=== PATIENT | female | born 1955 | race Caucasian/White ===

== ENCOUNTER → 2017-01-18 | Outpatient (CLI) | payer MEDICARE ==
[~2017-01-18] MED LIST: ACET-76 PO; ALBU18HF INH; ALBU2.5V NEB; ASPI-496 PO; ATOR10TA9 PO; CHOL10003 PO; CLOB15CR19 TD; ESOM20CA PO; FLUT1DIS3 INH; GLIP10TA13 PO; GUAI12003 PO; LEVO100T5 PO; LOPE2CAP94 PO; METF500T4 PO; MULT-516 PO; SERT50TA5 PO; SODI30SP NS; TIOT18CA INH; TRAM1TAB6 PO; TRAM50TA2 PO; TRIA10.8 NS; VITA150T PO; betamethasone cream TD; lidocaine ointment TD
[2017-01-18 15:18] LABS: BLOOD UREA NITROGEN 19 mg/dL (7-18)
[2017-01-18 15:22] LABS: ASPARTATE AMINO TRANSFERASE 14 U/L (15-37)
== END | disposition home or self-care (01) ==
LOC: STAR 13:29
PROVIDERS: ATTEND Specialist
DX: Z01.818 Encounter for other preprocedural examination (principal); R94.31 Abnormal electrocardiogram [ECG] [EKG]; R79.1 Abnormal coagulation profile
CPT/HCPCS: 36415; 80053; 85025; 85610; 85730; 93005

== ENCOUNTER 2017-01-29 05:38 | Inpatient (IN) | payer MEDICARE ==
[~2017-01-29] VITALS: Ht 157.5 cm; Wt 81.6 kg
[2017-01-29] MEDS ORDERED: LIDOCAINE 1%, 2ML SQ PRN (06:30)
[2017-01-29] MEDS ORDERED: LACTATED RINGERS 1,000 ML IV SCH (06:30)
[2017-01-29 06:32] VITALS: BP 146/72
[2017-01-29] MEDS ORDERED: BUPIVACAINE/PF 0.25% ONE (06:39)
[2017-01-29] MEDS ORDERED: EPINEPHRINE 1 MG/ML, 1ML ONE (06:39)
[2017-01-29] MEDS ORDERED: FENTANYL PF 250 MCG/5ML ONE (07:23)
[2017-01-29] MEDS ORDERED: MIDAZOLAM 1 MG/ML, 2ML ONE ×2 (07:24→08:08)
[2017-01-29] MEDS ORDERED: CEFOTETAN 2 GM ONE (07:38)
[2017-01-29] MEDS ORDERED: PROPOFOL 10 MG/ML, 20ML ONE (07:38)
[2017-01-29] MEDS ORDERED: ACETAMINOPHEN 325 MG TABLET PO PRN (09:30)
[2017-01-29] MEDS ORDERED: ALBUTEROL/IPRATROPIUM 2.5MG/0.5MG, 3 ML NPPB PRN (09:30)
[2017-01-29] MEDS ORDERED: hydrALAzine 20 MG/ML, 1ML IV PRN (09:30)
[2017-01-29] MEDS ORDERED: HYDROcodone/APAP 7.5-325MG/15ML UDC PO PRN ×2 (09:30→11:30)
[2017-01-29] MEDS ORDERED: MIDAZOLAM 1 MG/ML, 2ML IV PRN (09:30)
[2017-01-29] MEDS ORDERED: MEPERIDINE/PF 25MG/0.5ML IVPush PRN (09:30)
[2017-01-29] MEDS ORDERED: FENTANYL PF 100 MCG/2ML IV PRN (09:30)
[2017-01-29] MEDS ORDERED: OXYcodone 5 MG/5 ML ORAL.SOL UDC PO PRN (09:30)
[2017-01-29] MEDS ORDERED: LABETALOL 5MG/ML, 20ML IV PRN (09:30)
[2017-01-29] MEDS ORDERED: ONDANSETRON 2MG/ML, 2ML IVPush PRN ×2 (09:30→10:30)
[2017-01-29] MEDS ORDERED: EPHEDRINE 50 MG/ML, 1ML IVPush PRN (09:30)
[2017-01-29] MEDS ORDERED: PROMETHAZINE 25 MG/ML, 1ML IV PRN (09:30)
[2017-01-29] MEDS: LACTATED RINGERS 1,000 ML IV SCH ×2 (10:23→20:02)
[2017-01-29] MEDS ORDERED: OXYcodone/APAP 5/325MG TABLET PO PRN (10:30)
[2017-01-29] MEDS ORDERED: FENTANYL PF 100 MCG/2ML ONE (11:05)
[2017-01-29] MEDS ORDERED: KETOROLAC 30 MG/1 ML ONE (11:05)
[2017-01-29] MEDS: KETOROLAC 30 MG/1 ML IVPush PRN (11:09)
[2017-01-29] MEDS ORDERED: HYDROcodone/APAP 7.5-325MG/15ML UDC ONE (11:18)
[2017-01-29 12:15] VITALS: BP 125/40
[2017-01-29] MEDS ORDERED: CLOBETASOL PROPIONATE CRM 0.05%, 15GM TP PRN (13:00)
[2017-01-29] MEDS ORDERED: ALBUTEROL SULFATE 2.5 MG/3 ML NPPB PRN (13:00)
[2017-01-29] MEDS: IPRATROPIUM 0.5 MG/2.5 ML INHA HHN SCH ×2 (13:30→19:35)
[2017-01-29] MEDS ORDERED: LOPERAMIDE 2 MG CAPSULE PO PRN (13:30)
[2017-01-29] MEDS ORDERED: FLUTICASONE NASAL SPRAY 16GM NAS PRN (13:30)
[2017-01-29] MEDS ORDERED: SODIUM CHLORIDE NASAL SPRAY 45ML BOTTLE NAS PRN (13:30)
[2017-01-29] MEDS: metFORMIN 500 MG TABLET PO SCH (17:33)
[2017-01-29] MEDS: ATORVASTATIN 10 MG TABLET PO SCH (20:01)
[2017-01-29] MEDS: BETAMETHASONE DIPRO CRM 0.05%, 15GM TP SCH (20:02)
[2017-01-29] MEDS: GUAIFENESIN ER 600 MG TABLET PO SCH (20:02)
[2017-01-29 20:31] VITALS: BP 123/60
[2017-01-30] MEDS: KETOROLAC 30 MG/1 ML IVPush PRN ×2 (00:29→14:27)
[2017-01-30] MEDS: LIDOCAINE 4% TOPICAL SOLUTION 50 ML TP PRN ×2 (00:41→14:27)
[2017-01-30 00:54] VITALS: BP 133/60
[2017-01-30] MEDS: IPRATROPIUM 0.5 MG/2.5 ML INHA HHN SCH ×4 (01:15→18:59)
[2017-01-30 04:59] VITALS: BP 121/60
[2017-01-30] MEDS: LEVOTHYROXINE 100 MCG TABLET PO SCH (06:11)
[2017-01-30] MEDS: ENOXAPARIN 40 MG/0.4 ML SQ SCH (06:12)
[2017-01-30 08:07] VITALS: BP 142/55
[2017-01-30] MEDS: ASPIRIN 81 MG TABLET EC PO SCH (08:55)
[2017-01-30] MEDS: MULTIVITAMIN 1 TABLET PO SCH (08:55)
[2017-01-30] MEDS: PANTOPROZOLE 40MG TABLET PO SCH (08:55)
[2017-01-30] MEDS: metFORMIN 500 MG TABLET PO SCH ×2 (08:56→16:38)
[2017-01-30] MEDS: GLIPizide ER 5 MG TABLET PO SCH (08:56)
[2017-01-30] MEDS: MULTIVITS,STRESS FORMULA 1 TABLET PO SCH (08:57)
[2017-01-30] MEDS: GUAIFENESIN ER 600 MG TABLET PO SCH ×2 (08:57→22:05)
[2017-01-30] MEDS: SERTRALINE 50MG TABLET PO SCH (08:57)
[2017-01-30] MEDS: CHOLECALCIFEROL 1,000 UNIT TABLET PO SCH (08:57)
[2017-01-30] MEDS: LOPERAMIDE 2 MG CAPSULE PO SCH (08:58)
[2017-01-30] MEDS: FLUTICASONE/VILANTEROL 100-25MCG/INH INH SCH (08:58)
[2017-01-30] MEDS: BETAMETHASONE DIPRO CRM 0.05%, 15GM TP SCH ×2 (09:00→21:00)
[2017-01-30] MEDS: LACTATED RINGERS 1,000 ML IV SCH (11:19)
[2017-01-30 12:53] VITALS: BP 143/74
[2017-01-30 20:00] VITALS: BP 150/70
[2017-01-30] MEDS: ATORVASTATIN 10 MG TABLET PO SCH (22:05)
[2017-01-31] MEDS: IPRATROPIUM 0.5 MG/2.5 ML INHA HHN SCH ×3 (01:30→13:30)
[2017-01-31] MEDS: LEVOTHYROXINE 100 MCG TABLET PO SCH (05:56)
[2017-01-31] MEDS: ENOXAPARIN 40 MG/0.4 ML SQ SCH (05:56)
[2017-01-31 06:37] VITALS: BP 149/70
[2017-01-31] MEDS: ASPIRIN 81 MG TABLET EC PO SCH (08:00)
[2017-01-31] MEDS: PANTOPROZOLE 40MG TABLET PO SCH (08:00)
[2017-01-31] MEDS: metFORMIN 500 MG TABLET PO SCH ×2 (08:00→16:48)
[2017-01-31] MEDS: GLIPizide ER 5 MG TABLET PO SCH (08:00)
[2017-01-31] MEDS: BETAMETHASONE DIPRO CRM 0.05%, 15GM TP SCH (09:00)
[2017-01-31] MEDS: LOPERAMIDE 2 MG CAPSULE PO SCH (10:03)
[2017-01-31] MEDS: CHOLECALCIFEROL 1,000 UNIT TABLET PO SCH (10:03)
[2017-01-31] MEDS: GUAIFENESIN ER 600 MG TABLET PO SCH (10:03)
[2017-01-31] MEDS: MULTIVITS,STRESS FORMULA 1 TABLET PO SCH (10:03)
[2017-01-31] MEDS: MULTIVITAMIN 1 TABLET PO SCH (10:03)
[2017-01-31] MEDS: SERTRALINE 50MG TABLET PO SCH (10:03)
[2017-01-31] MEDS: FLUTICASONE/VILANTEROL 100-25MCG/INH INH SCH (10:03)
[2017-01-31] MEDS ORDERED: LACTATED RINGERS 1,000 ML IV SCH (10:23)
[2017-01-31] MEDS: LIDOCAINE 4% TOPICAL SOLUTION 50 ML TP PRN (11:28)
[2017-01-31 13:16] VITALS: BP 145/77
[2017-01-31] MEDS ORDERED: TRAM1TAB6 PO (14:39)
[2017-01-31] MEDS ORDERED: ONDA4TAB7 PO (14:40)
[2017-01-31] MEDS: KETOROLAC 30 MG/1 ML IVPush PRN (16:54)
== END 2017-01-31 18:24 | disposition home or self-care (01) | DRG 746 ==
LOC: ORIP 05:38 → 4NOR 12:08
PROVIDERS: ADMIT Specialist; ATTEND Specialist
PROC: 0UBM0ZZ Excision of Vulva, Open Approach (ICD-10-PCS; 2017-01-29)
PROC: 0UB Female Reproductive System, Excision (ICD-10-PCS; 2017-01-29)
PROC: 07BH0ZX Excision of Right Inguinal Lymphatic, Open Approach, Diagnostic (ICD-10-PCS; principal; 2017-01-29 07:30)
DX: C51.9 Malignant neoplasm of vulva, unspecified (principal); E44.1 Mild protein-calorie malnutrition; E03.9 Hypothyroidism, unspecified; E78.5 Hyperlipidemia, unspecified; F32.9 Major depressive disorder, single episode, unspecified; E11.9 Type 2 diabetes mellitus without complications; I10 Essential (primary) hypertension; J43.9 Emphysema, unspecified; J45.909 Unspecified asthma, uncomplicated; K21.9 Gastro-esophageal reflux disease without esophagitis; Z86.73 Personal history of transient ischemic attack (TIA), and cerebral infarction without residual deficits; Z87.11 Personal history of peptic ulcer disease; Z88.6 Allergy status to analgesic agent; Z88.5 Allergy status to narcotic agent; I25.2 Old myocardial infarction; Z88.8 Allergy status to other drugs, medicaments and biological substances; Z90.710 Acquired absence of both cervix and uterus; Z82.49 Family history of ischemic heart disease and other diseases of the circulatory system; Z80.1 Family history of malignant neoplasm of trachea, bronchus and lung
CPT/HCPCS: 36415; 81001; 82962; 85025; 86850; 86900; 86923; 87086; 88304; 88309; 94640; C1729; J0171; J1650; J1885; J2250; J2704; J3010; J3490; J7613; J7644; J7120; S0074

== ENCOUNTER 2017-02-15 11:07 | Inpatient (IN) | payer MEDICARE ==
[~2017-02-15] VITALS: Ht 157.5 cm; Wt 76.5 kg
[~2017-02-15 11:07] MED LIST changes: +ONDA4TAB7 PO
[2017-02-15 12:35] VITALS: BP 147/82
[2017-02-15] MEDS ORDERED: SODIUM CHLORIDE NASAL SPRAY 45ML BOTTLE NAS PRN (14:00)
[2017-02-15] MEDS ORDERED: ALBUTEROL SULFATE 2.5 MG/3 ML NPPB PRN ×2 (14:00→19:30)
[2017-02-15] MEDS ORDERED: LOPERAMIDE 2 MG CAPSULE PO PRN (14:00)
[2017-02-15] MEDS ORDERED: FLUTICASONE NASAL SPRAY 16GM NAS PRN (14:00)
[2017-02-15] MEDS ORDERED: ONDANSETRON 4 MG TABLET PO PRN (14:00)
[2017-02-15] MEDS: OXYcodone/APAP 5/325MG TABLET PO SCH ×2 (14:30→20:30)
[2017-02-15 15:00] VITALS: BP 147/82
[2017-02-15] MEDS: metFORMIN 500 MG TABLET PO SCH (17:48)
[2017-02-15] MEDS: CEFAZOLIN PMX 1GM/50ML 50 ML IVPB SCH (18:29)
[2017-02-15] MEDS: ALBUTEROL SULFATE 2.5 MG/3 ML NPPB SCH (19:10)
[2017-02-15 20:02] VITALS: BP 119/67
[2017-02-15] MEDS: ADVAIR INH SCH (21:00)
[2017-02-15] MEDS: ATORVASTATIN 10 MG TABLET PO SCH (21:54)
[2017-02-15] MEDS: GUAIFENESIN ER 600 MG TABLET PO SCH (21:54)
[2017-02-16] MEDS: CEFAZOLIN PMX 1GM/50ML 50 ML IVPB SCH ×4 (00:46→18:30)
[2017-02-16] MEDS: OXYcodone/APAP 5/325MG TABLET PO SCH ×4 (01:07→20:30)
[2017-02-16 02:05] VITALS: BP 120/72
[2017-02-16] MEDS: LEVOTHYROXINE 100 MCG TABLET PO SCH (06:16)
[2017-02-16] MEDS: PHENAZOPYRIDINE 200 MG TABLET PO PRN ×2 (06:16→16:30)
[2017-02-16 06:36] VITALS: BP 128/72
[2017-02-16] MEDS: ALBUTEROL SULFATE 2.5 MG/3 ML NPPB SCH ×2 (08:25→17:15)
[2017-02-16] MEDS ORDERED: SERTRALINE 50MG TABLET PO SCH (09:00)
[2017-02-16] MEDS: OMEPRAZOLE 20 MG CAPSULE.DR PO SCH (09:02)
[2017-02-16] MEDS: ASPIRIN 81 MG TABLET EC PO SCH (09:02)
[2017-02-16] MEDS: metFORMIN 500 MG TABLET PO SCH ×2 (09:02→16:30)
[2017-02-16] MEDS: LOPERAMIDE 2 MG CAPSULE PO SCH (09:02)
[2017-02-16] MEDS: GUAIFENESIN ER 600 MG TABLET PO SCH ×2 (09:02→21:52)
[2017-02-16] MEDS: CHOLECALCIFEROL 1,000 UNIT TABLET PO SCH (09:03)
[2017-02-16] MEDS: ADVAIR INH SCH ×2 (09:03→21:00)
[2017-02-16] MEDS: SPRIVIA INH SCH (09:03)
[2017-02-16] MEDS: MULTIVITAMIN 1 TABLET PO SCH (09:03)
[2017-02-16 13:21] VITALS: BP 109/71
[2017-02-16] MEDS: INSULIN ASPART 100 UNITS/ML, PEN SQ-INSULIN SCH ×2 (16:00→21:53)
[2017-02-16] MEDS ORDERED: VANCOMYCIN PER PHARMACY MC PRN (19:00)
[2017-02-16] MEDS ORDERED: ALBUTEROL SULFATE 2.5 MG/3 ML ONE (19:15)
[2017-02-16] MEDS: ALBUTEROL/IPRATROPIUM 2.5MG/0.5MG, 3 ML NPPB SCH (19:26)
[2017-02-16] MEDS ORDERED: VANCOMYCIN 1,400 MG in SODIUM CHLORIDE 0.9% 250 ML IV SCH (19:30)
[2017-02-16] MEDS ORDERED: PHARMACOKINETIC MONITORING MC PRN (19:30)
[2017-02-16] MEDS ORDERED: PHARMACOKINETIC CONSULTATION MC ONE (19:30)
[2017-02-16 19:42] VITALS: BP 115/65
[2017-02-16] MEDS: ATORVASTATIN 10 MG TABLET PO SCH (21:52)
[2017-02-16] MEDS: SERTRALINE 50MG TABLET PO SCH (21:53)
[2017-02-17] MEDS: CLINDAMYCIN PMX 900MG/50ML 50 ML IV SCH ×3 (00:38→21:30)
[2017-02-17 01:32] VITALS: BP 136/73
[2017-02-17] MEDS: OXYcodone/APAP 5/325MG TABLET PO SCH ×4 (01:49→20:30)
[2017-02-17 04:35] LABS: HEMATOCRIT 37.1 % (34.6-47.8); HEMOGLOBIN 12.1 g/dL (11.7-16.4); WHITE BLOOD COUNT 7.2 x10^3/uL (3.4-10)
[2017-02-17 04:50] LABS: ASPARTATE AMINO TRANSFERASE 11 U/L (15-37); BLOOD UREA NITROGEN 14 mg/dL (7-18)
[2017-02-17] MEDS: LEVOTHYROXINE 100 MCG TABLET PO SCH (05:55)
[2017-02-17 06:53] VITALS: BP 137/86
[2017-02-17] MEDS: INSULIN ASPART 100 UNITS/ML, PEN SQ-INSULIN SCH ×4 (07:00→21:00)
[2017-02-17] MEDS: LOPERAMIDE 2 MG CAPSULE PO SCH (09:00)
[2017-02-17] MEDS: SPRIVIA INH SCH (09:00)
[2017-02-17] MEDS: FLUTICASONE/VILANTEROL 200-25MCG/INH INH SCH (09:00)
[2017-02-17] MEDS: ADVAIR INH SCH ×2 (09:00→21:00)
[2017-02-17] MEDS: ALBUTEROL/IPRATROPIUM 2.5MG/0.5MG, 3 ML NPPB SCH ×3 (10:10→21:00)
[2017-02-17] MEDS: GUAIFENESIN ER 600 MG TABLET PO SCH ×2 (10:48→21:30)
[2017-02-17] MEDS: MULTIVITAMIN 1 TABLET PO SCH (10:48)
[2017-02-17] MEDS: ASPIRIN 81 MG TABLET EC PO SCH (10:48)
[2017-02-17] MEDS: metFORMIN 500 MG TABLET PO SCH ×2 (10:48→17:12)
[2017-02-17] MEDS: CHOLECALCIFEROL 1,000 UNIT TABLET PO SCH (10:49)
[2017-02-17] MEDS: VANCOMYCIN 1,400 MG in SODIUM CHLORIDE 0.9% 250 ML IV SCH (10:49)
[2017-02-17] MEDS: PHENAZOPYRIDINE 200 MG TABLET PO PRN (10:49)
[2017-02-17] MEDS: OMEPRAZOLE 20 MG CAPSULE.DR PO SCH (10:49)
[2017-02-17 13:32] VITALS: BP 133/68
[2017-02-17 18:45] VITALS: BP 107/63
[2017-02-17] MEDS: ATORVASTATIN 10 MG TABLET PO SCH (21:30)
[2017-02-17] MEDS: SERTRALINE 50MG TABLET PO SCH (21:30)
[2017-02-18] MEDS: OXYcodone/APAP 5/325MG TABLET PO SCH ×4 (02:04→20:30)
[2017-02-18 03:00] VITALS: BP 149/59
[2017-02-18] MEDS: VANCOMYCIN 1,400 MG in SODIUM CHLORIDE 0.9% 250 ML IV SCH ×2 (04:22→23:40)
[2017-02-18 04:51] LABS: HEMATOCRIT 34.3 % (34.6-47.8); HEMOGLOBIN 11.2 g/dL (11.7-16.4); WHITE BLOOD COUNT 6.6 x10^3/uL (3.4-10)
[2017-02-18] MEDS: CLINDAMYCIN PMX 900MG/50ML 50 ML IV SCH ×3 (06:02→22:27)
[2017-02-18] MEDS: LEVOTHYROXINE 100 MCG TABLET PO SCH (06:02)
[2017-02-18] MEDS: INSULIN ASPART 100 UNITS/ML, PEN SQ-INSULIN SCH ×4 (07:49→21:00)
[2017-02-18] MEDS: ASPIRIN 81 MG TABLET EC PO SCH (07:50)
[2017-02-18] MEDS: OMEPRAZOLE 20 MG CAPSULE.DR PO SCH (07:51)
[2017-02-18] MEDS: metFORMIN 500 MG TABLET PO SCH ×2 (07:52→17:06)
[2017-02-18] MEDS: GUAIFENESIN ER 600 MG TABLET PO SCH ×2 (07:54→22:24)
[2017-02-18] MEDS: LOPERAMIDE 2 MG CAPSULE PO SCH (07:54)
[2017-02-18] MEDS: MULTIVITAMIN 1 TABLET PO SCH (07:55)
[2017-02-18] MEDS: CHOLECALCIFEROL 1,000 UNIT TABLET PO SCH (07:55)
[2017-02-18 07:58] VITALS: BP 122/76
[2017-02-18] MEDS: ALBUTEROL/IPRATROPIUM 2.5MG/0.5MG, 3 ML NPPB SCH ×3 (08:20→20:51)
[2017-02-18] MEDS: SPRIVIA INH SCH (09:00)
[2017-02-18] MEDS: ADVAIR INH SCH ×2 (09:00→21:00)
[2017-02-18] MEDS: FLUTICASONE/VILANTEROL 200-25MCG/INH INH SCH (11:37)
[2017-02-18 14:16] VITALS: BP 136/83
[2017-02-18 19:30] VITALS: BP 127/72
[2017-02-18] MEDS: ATORVASTATIN 10 MG TABLET PO SCH (22:24)
[2017-02-18] MEDS: SERTRALINE 50MG TABLET PO SCH (22:24)
[2017-02-19 01:23] VITALS: BP 126/67
[2017-02-19] MEDS: OXYcodone/APAP 5/325MG TABLET PO SCH ×4 (01:58→20:30)
[2017-02-19] MEDS: LEVOTHYROXINE 100 MCG TABLET PO SCH (05:33)
[2017-02-19] MEDS: CLINDAMYCIN PMX 900MG/50ML 50 ML IV SCH ×3 (05:34→20:52)
[2017-02-19 08:08] VITALS: BP 124/77
[2017-02-19] MEDS: ADVAIR INH SCH ×2 (09:00→21:00)
[2017-02-19] MEDS: LOPERAMIDE 2 MG CAPSULE PO SCH (09:00)
[2017-02-19] MEDS: SPRIVIA INH SCH (09:00)
[2017-02-19] MEDS: ASPIRIN 81 MG TABLET EC PO SCH (09:31)
[2017-02-19] MEDS: OMEPRAZOLE 20 MG CAPSULE.DR PO SCH (09:31)
[2017-02-19] MEDS: metFORMIN 500 MG TABLET PO SCH ×2 (09:31→16:38)
[2017-02-19] MEDS: GUAIFENESIN ER 600 MG TABLET PO SCH ×2 (09:32→20:51)
[2017-02-19] MEDS: MULTIVITAMIN 1 TABLET PO SCH (09:32)
[2017-02-19] MEDS: CHOLECALCIFEROL 1,000 UNIT TABLET PO SCH (09:32)
[2017-02-19] MEDS: FLUTICASONE/VILANTEROL 200-25MCG/INH INH SCH (09:32)
[2017-02-19] MEDS: ALBUTEROL/IPRATROPIUM 2.5MG/0.5MG, 3 ML NPPB SCH ×3 (10:45→19:23)
[2017-02-19] MEDS: INSULIN ASPART 100 UNITS/ML, PEN SQ-INSULIN SCH ×3 (11:00→21:02)
[2017-02-19 13:47] VITALS: BP 100/68
[2017-02-19] MEDS: VANCOMYCIN 1,400 MG in SODIUM CHLORIDE 0.9% 250 ML IV SCH (16:37)
[2017-02-19 19:54] VITALS: BP 122/76
[2017-02-19] MEDS: ATORVASTATIN 10 MG TABLET PO SCH (20:51)
[2017-02-19] MEDS: SERTRALINE 50MG TABLET PO SCH (20:51)
[2017-02-20] MEDS: OXYcodone/APAP 5/325MG TABLET PO SCH ×4 (02:08→20:12)
[2017-02-20 02:57] VITALS: BP 122/70
[2017-02-20] MEDS: CLINDAMYCIN PMX 900MG/50ML 50 ML IV SCH ×3 (06:33→21:29)
[2017-02-20] MEDS: LEVOTHYROXINE 100 MCG TABLET PO SCH (06:33)
[2017-02-20] MEDS: ALBUTEROL/IPRATROPIUM 2.5MG/0.5MG, 3 ML NPPB SCH ×3 (07:20→18:51)
[2017-02-20 07:29] VITALS: BP 104/65
[2017-02-20] MEDS: metFORMIN 500 MG TABLET PO SCH ×2 (07:46→17:03)
[2017-02-20] MEDS: ASPIRIN 81 MG TABLET EC PO SCH (07:46)
[2017-02-20] MEDS: OMEPRAZOLE 20 MG CAPSULE.DR PO SCH (07:47)
[2017-02-20] MEDS: GUAIFENESIN ER 600 MG TABLET PO SCH ×2 (07:47→21:24)
[2017-02-20] MEDS: MULTIVITAMIN 1 TABLET PO SCH (07:47)
[2017-02-20] MEDS: FLUTICASONE/VILANTEROL 200-25MCG/INH INH SCH (07:47)
[2017-02-20] MEDS: CHOLECALCIFEROL 1,000 UNIT TABLET PO SCH (07:48)
[2017-02-20] MEDS: INSULIN ASPART 100 UNITS/ML, PEN SQ-INSULIN SCH ×4 (07:53→21:00)
[2017-02-20] MEDS: ADVAIR INH SCH ×2 (07:53→20:13)
[2017-02-20] MEDS: SPRIVIA INH SCH (07:54)
[2017-02-20] MEDS: LOPERAMIDE 2 MG CAPSULE PO SCH (09:00)
[2017-02-20] MEDS: VANCOMYCIN 1,400 MG in SODIUM CHLORIDE 0.9% 250 ML IV SCH (12:08)
[2017-02-20 15:45] VITALS: BP 117/72
[2017-02-20 20:39] VITALS: BP 119/69
[2017-02-20] MEDS: ATORVASTATIN 10 MG TABLET PO SCH (21:24)
[2017-02-20] MEDS: SERTRALINE 50MG TABLET PO SCH (21:24)
[2017-02-20] MEDS: VANCOMYCIN 1,200 MG in SODIUM CHLORIDE 0.9% 250 ML IV SCH (23:32)
[2017-02-21 01:32] VITALS: BP 123/64
[2017-02-21] MEDS: OXYcodone/APAP 5/325MG TABLET PO SCH ×5 (01:53→23:40)
[2017-02-21] MEDS: CLINDAMYCIN PMX 900MG/50ML 50 ML IV SCH ×3 (06:25→20:17)
[2017-02-21] MEDS: LEVOTHYROXINE 100 MCG TABLET PO SCH (06:25)
[2017-02-21 06:54] VITALS: BP 122/75
[2017-02-21] MEDS: INSULIN ASPART 100 UNITS/ML, PEN SQ-INSULIN SCH ×4 (07:00→20:17)
[2017-02-21] MEDS: ALBUTEROL/IPRATROPIUM 2.5MG/0.5MG, 3 ML NPPB SCH ×3 (07:19→19:22)
[2017-02-21] MEDS: OMEPRAZOLE 20 MG CAPSULE.DR PO SCH (07:46)
[2017-02-21] MEDS: metFORMIN 500 MG TABLET PO SCH ×2 (08:00→16:31)
[2017-02-21] MEDS: ADVAIR INH SCH ×2 (09:00→20:14)
[2017-02-21] MEDS: LOPERAMIDE 2 MG CAPSULE PO SCH (09:00)
[2017-02-21] MEDS: SPRIVIA INH SCH (09:00)
[2017-02-21] MEDS: FLUTICASONE/VILANTEROL 200-25MCG/INH INH SCH (11:15)
[2017-02-21] MEDS: ASPIRIN 81 MG TABLET EC PO SCH (11:15)
[2017-02-21] MEDS: CHOLECALCIFEROL 1,000 UNIT TABLET PO SCH (11:15)
[2017-02-21] MEDS: GUAIFENESIN ER 600 MG TABLET PO SCH ×2 (11:15→20:15)
[2017-02-21] MEDS: MULTIVITAMIN 1 TABLET PO SCH (11:15)
[2017-02-21] MEDS: VANCOMYCIN 1,200 MG in SODIUM CHLORIDE 0.9% 250 ML IV SCH (12:47)
[2017-02-21 12:51] VITALS: BP 118/69
[2017-02-21 20:14] VITALS: BP 113/64
[2017-02-21] MEDS: ATORVASTATIN 10 MG TABLET PO SCH (20:14)
[2017-02-21] MEDS: SERTRALINE 50MG TABLET PO SCH (20:14)
[2017-02-21] MEDS ORDERED: CATHFLO-ALTEPLASE 2 MG/2 ML CATHFLUSH ONE (20:30)
[2017-02-22 02:50] VITALS: BP 128/71
[2017-02-22] MEDS: LEVOTHYROXINE 100 MCG TABLET PO SCH (05:38)
[2017-02-22] MEDS: INSULIN ASPART 100 UNITS/ML, PEN SQ-INSULIN SCH ×4 (07:00→21:57)
[2017-02-22 07:33] VITALS: BP 146/77
[2017-02-22] MEDS: ASPIRIN 81 MG TABLET EC PO SCH (08:23)
[2017-02-22] MEDS: metFORMIN 500 MG TABLET PO SCH ×2 (08:24→16:15)
[2017-02-22] MEDS: CLINDAMYCIN 300 MG CAPSULE PO SCH ×3 (08:24→16:15)
[2017-02-22] MEDS: OMEPRAZOLE 20 MG CAPSULE.DR PO SCH (08:24)
[2017-02-22] MEDS: CHOLECALCIFEROL 1,000 UNIT TABLET PO SCH (08:25)
[2017-02-22] MEDS: MULTIVITAMIN 1 TABLET PO SCH (08:25)
[2017-02-22] MEDS: GUAIFENESIN ER 600 MG TABLET PO SCH ×2 (08:25→21:57)
[2017-02-22] MEDS: FLUTICASONE/VILANTEROL 200-25MCG/INH INH SCH (08:26)
[2017-02-22] MEDS: OXYcodone/APAP 5/325MG TABLET PO SCH ×3 (08:26→20:30)
[2017-02-22] MEDS: LOPERAMIDE 2 MG CAPSULE PO SCH (08:26)
[2017-02-22] MEDS: SPRIVIA INH SCH (08:26)
[2017-02-22] MEDS: ADVAIR INH SCH ×2 (08:26→21:00)
[2017-02-22] MEDS: ALBUTEROL/IPRATROPIUM 2.5MG/0.5MG, 3 ML NPPB SCH ×3 (09:45→20:46)
[2017-02-22 13:03] VITALS: BP 129/75
[2017-02-22 19:22] VITALS: BP 127/62
[2017-02-22] MEDS: ATORVASTATIN 10 MG TABLET PO SCH (21:57)
[2017-02-22] MEDS: SERTRALINE 50MG TABLET PO SCH (21:57)
[2017-02-23] MEDS: OXYcodone/APAP 5/325MG TABLET PO SCH ×3 (00:24→11:50)
[2017-02-23 02:15] VITALS: BP 160/80
[2017-02-23 02:50] LABS: HEMATOCRIT 34.2 % (34.6-47.8); HEMOGLOBIN 11.1 g/dL (11.7-16.4); WHITE BLOOD COUNT 6.3 x10^3/uL (3.4-10)
[2017-02-23 02:57] VITALS: BP 128/72
[2017-02-23 03:00] LABS: BLOOD UREA NITROGEN 11 mg/dL (7-18)
[2017-02-23] MEDS: LEVOTHYROXINE 100 MCG TABLET PO SCH (05:56)
[2017-02-23] MEDS: ALBUTEROL/IPRATROPIUM 2.5MG/0.5MG, 3 ML NPPB SCH ×2 (06:38→11:14)
[2017-02-23 06:45] VITALS: BP 146/77
[2017-02-23] MEDS: CHOLECALCIFEROL 1,000 UNIT TABLET PO SCH (07:59)
[2017-02-23] MEDS: metFORMIN 500 MG TABLET PO SCH (07:59)
[2017-02-23] MEDS: CLINDAMYCIN 300 MG CAPSULE PO SCH ×2 (07:59→11:50)
[2017-02-23] MEDS: OMEPRAZOLE 20 MG CAPSULE.DR PO SCH (07:59)
[2017-02-23] MEDS: GUAIFENESIN ER 600 MG TABLET PO SCH (07:59)
[2017-02-23] MEDS: LOPERAMIDE 2 MG CAPSULE PO SCH (07:59)
[2017-02-23] MEDS: INSULIN ASPART 100 UNITS/ML, PEN SQ-INSULIN SCH ×2 (08:00→11:50)
[2017-02-23] MEDS: ASPIRIN 81 MG TABLET EC PO SCH (08:00)
[2017-02-23] MEDS: MULTIVITAMIN 1 TABLET PO SCH (08:00)
[2017-02-23] MEDS: FLUTICASONE/VILANTEROL 200-25MCG/INH INH SCH (08:00)
[2017-02-23] MEDS: ADVAIR INH SCH (08:01)
[2017-02-23] MEDS: SPRIVIA INH SCH (08:01)
[2017-02-23] MEDS ORDERED: CLIN300C3 PO (13:35)
== END 2017-02-23 14:00 | disposition home or self-care (01) | DRG 603 ==
LOC: 3NW 11:31 → INTOOBSV 11:31 → 3NW 11:54 → OBSVTOIN 02-16 12:20
PROVIDERS: ADMIT Specialist; ATTEND Specialist
PROC: 0T9B70Z Drainage of Bladder with Drainage Device, Via Natural or Artificial Opening (ICD-10-PCS; 2017-02-16)
PROC: B5181ZA Fluoroscopy of Superior Vena Cava using Low Osmolar Contrast, Guidance (ICD-10-PCS; principal; 2017-02-17)
PROC: 02HV33Z Insertion of Infusion Device into Superior Vena Cava, Percutaneous Approach (ICD-10-PCS; 2017-02-17)
PROC: B548ZZA Ultrasonography of Superior Vena Cava, Guidance (ICD-10-PCS; 2017-02-17)
PROC: 0WJJ3ZZ Inspection of Pelvic Cavity, Percutaneous Approach (ICD-10-PCS; 2017-02-17)
DX: L03.314 Cellulitis of groin (principal); E44.1 Mild protein-calorie malnutrition; Z66 Do not resuscitate; Y83.8 Other surgical procedures as the cause of abnormal reaction of the patient, or of later complication, without mention of misadventure at the time of the procedure; E87.6 Hypokalemia; Z88.8 Allergy status to other drugs, medicaments and biological substances; Z88.5 Allergy status to narcotic agent; Z88.6 Allergy status to analgesic agent; Y92.89 Other specified places as the place of occurrence of the external cause
CPT/HCPCS: 36415; 36569; 76937; 77001; 80048; 80053; 80202; 81001; 82962; 85025; 87086; 94640; G0378; J0690; J1815; J2997; J3370; J7613; J7620; C1751; J7050

== ENCOUNTER → 2018-11-04 | Outpatient (CLI) | payer MEDICARE ==
[~2018-11-04] MED LIST changes: +ACET-1600 PO; +AMLO10TA8 PO; +CALC200T3 PO; +CLIN300C3 PO; +LEVO88TA4 PO; +METF500T17 PO; -METF500T4 PO; +SERT50TA28 PO; -SERT50TA5 PO; +TRIA10.8 NAS; +UMEC62.5 INH; +VIT1TABL32 PO
[2018-11-04 14:17] LABS: INTERNATIONAL NORMALIZED RATIO 0.95 (0.93-1.1)
[2018-11-04 14:19] LABS: ALBUMIN 4.3 g/dL (3.4-5.0); CALCIUM 9.5 mg/dL (8.5-10.1); CHLORIDE 107 mmol/L (98-107)
[2018-11-04 14:28] LABS: ALANINE AMINOTRANSFERASE 21 U/L (12-78); ALKALINE PHOSPHATASE 72 U/L (45-117); ANION GAP 7 mmol/L (5-15); BILIRUBIN,TOTAL 0.6 mg/dL (0.2-1.0); TOTAL PROTEIN 7.3 g/dL (6.4-8.2)
== END | disposition home or self-care (01) ==
LOC: STAR 12:54
PROVIDERS: ATTEND Specialist
DX: Z01.818 Encounter for other preprocedural examination (principal); C51.9 Malignant neoplasm of vulva, unspecified; E11.9 Type 2 diabetes mellitus without complications; I10 Essential (primary) hypertension; I25.2 Old myocardial infarction
CPT/HCPCS: 36415; 71046; 80053; 85610; 85730; 93005

== ENCOUNTER 2018-11-11 07:10 | Day surgery (SDC) | payer MEDICARE ==
[~2018-11-11] VITALS: Ht 156.2 cm; Wt 70.0 kg
[2018-11-11] MEDS ORDERED: BUPIVACAINE/PF 0.25% ONE (07:12)
[2018-11-11] MEDS ORDERED: EPINEPHRINE 1 MG/ML, 1ML ONE (07:12)
[2018-11-11] MEDS ORDERED: HEPARIN 1,000 UNITS/ML, 10ML ONE (07:12)
[2018-11-11] MEDS ORDERED: MORPHINE SULFATE 4 MG/ML, 1ML IVPush PRN (09:30)
[2018-11-11] MEDS ORDERED: HYDROmorphone 2 MG/ML, 1ML IVPush PRN (09:30)
[2018-11-11] MEDS ORDERED: hydrALAzine 20 MG/ML, 1ML IV PRN (09:30)
[2018-11-11] MEDS ORDERED: HALOPERIDOL 5 MG/ML IV PRN (09:30)
[2018-11-11] MEDS ORDERED: LABETALOL 5MG/ML, 20ML IV PRN (09:30)
[2018-11-11] MEDS ORDERED: MEPERIDINE/PF 25MG/0.5ML IVPush PRN (09:30)
[2018-11-11] MEDS ORDERED: ALBUTEROL/IPRATROPIUM 2.5MG/0.5MG, 3 ML NPPB PRN (09:30)
[2018-11-11] MEDS ORDERED: METOPROLOL 1 MG/ML, 5ML IV PRN (09:30)
[2018-11-11] MEDS ORDERED: OXYcodone 5 MG/5 ML ORAL.SOL UDC PO PRN (09:30)
[2018-11-11] MEDS ORDERED: DIPHENHYDRAMINE 50 MG/ML, 1ML IVPush PRN (09:30)
[2018-11-11] MEDS ORDERED: FENTANYL PF 100 MCG/2ML IV PRN (09:30)
[2018-11-11] MEDS ORDERED: PROCHLORPERAZINE 5 MG/ML, 2ML IV PRN (09:30)
[2018-11-11] MEDS ORDERED: PROMETHAZINE 25 MG/ML, 1ML IV PRN (09:30)
[2018-11-11] MEDS ORDERED: FENTANYL PF 250 MCG/5ML ONE (09:31)
[2018-11-11] MEDS ORDERED: MIDAZOLAM 1 MG/ML, 2ML ONE (09:32)
[2018-11-11] MEDS ORDERED: LACTATED RINGERS 1,000 ML IV SCH (09:37)
[2018-11-11 09:43] VITALS: BP 15/66
[2018-11-11] MEDS: GABAPENTIN 300 MG CAPSULE PO ONE ×2 (09:55→09:56)
[2018-11-11] MEDS ORDERED: ACETAMINOPHEN 500 MG TABLET PO ONE (10:00)
[2018-11-11] MEDS ORDERED: DIME42GE TP (10:15)
[2018-11-11] MEDS ORDERED: ONDANSETRON 2MG/ML, 2ML ONE (10:28)
[2018-11-11] MEDS ORDERED: NEOSTIGMINE 1 MG/ML, 10ML ONE (10:28)
[2018-11-11] MEDS ORDERED: CEFAZOLIN 1,000 MG ONE (10:28)
[2018-11-11] MEDS ORDERED: PROPOFOL 10 MG/ML, 20ML ONE (10:28)
[2018-11-11] MEDS ORDERED: DEXAMETHASONE 4 MG/ML, 1ML ONE (10:28)
[2018-11-11] MEDS ORDERED: GLYCOPYRROLATE 0.2MG/1ML, 5ML ONE (10:28)
[2018-11-11] MEDS ORDERED: ROCURONIUM 10MG/ML,5ML ONE (10:28)
[2018-11-11] MEDS ORDERED: SUCCINYLCHOLINE 20 MG/ML, 10ML ONE (10:28)
[2018-11-11] MEDS ORDERED: BUPIVACAINE/PF 0.25% INFIL ONE (10:51)
[2018-11-11] MEDS ORDERED: ALBUTEROL SULFATE 2.5 MG/3 ML ONE (11:33)
== END 2018-11-11 14:30 | disposition home or self-care (01) ==
LOC: OUT 07:10
PROVIDERS: ATTEND Specialist
DX: C51.9 Malignant neoplasm of vulva, unspecified (principal); I10 Essential (primary) hypertension; E11.9 Type 2 diabetes mellitus without complications; I25.2 Old myocardial infarction; K21.9 Gastro-esophageal reflux disease without esophagitis; J43.9 Emphysema, unspecified; E03.9 Hypothyroidism, unspecified; F32.9 Major depressive disorder, single episode, unspecified; F17.210 Nicotine dependence, cigarettes, uncomplicated; Z98.890 Other specified postprocedural states; Z86.73 Personal history of transient ischemic attack (TIA), and cerebral infarction without residual deficits; Z88.6 Allergy status to analgesic agent; Z88.1 Allergy status to other antibiotic agents; Z88.5 Allergy status to narcotic agent; Z88.8 Allergy status to other drugs, medicaments and biological substances; Z90.710 Acquired absence of both cervix and uterus
CPT/HCPCS: 56620; 82962; 88305; 94640; J0171; J0330; J0690; J1100; J2250; J2405; J2704; J2710; J3010; J3490; J7120; J1644